=== PATIENT | female | born 1995 | race Caucasian/White ===

== ENCOUNTER 2016-07-09 10:22 | Emergency (ER) | payer BC, OTHER ==
[2016-07-09 11:16] VITALS: BP 113/68
--- NOTE | 2016-07-09 12:12 | UC ---
Throat Pain/Nasal [place] HPI - HPI Summary HPI Summary: 21 female presents with complaints of sore throat that began yesterday 07/08/16. Patient states the pain began as a burning every time she swallowed however has seemed to localize to her left tonsil which no feels swollen and causes painful swallowing. Patient has been taking Tylenol which gives her some relief. Last dose being around 9am this morning. She admits to a low grade fever 99F however has been strictly taking tylenol. Denies difficulty swallowing, difficulty breathing, cough, nasal congestion, and ear pain. Admits to some nasal congestion, swollen glands and headache. Denies PMHx. Has had strep in the past. Does not know of any sick contacts. - History of Current Complaint Chief Complaint: UCGeneralIllness Stated Complaint: SORE THROAT,SWOLLEN GLANDS,FEVER Hx Obtained From: Patient Hx Last Menstrual Period: 06/10/16 ?: No Onset/Duration: Sudden Onset, Still Present, Worse Since Severity: Moderate Pain Intensity: 5 Pain Scale Used: 0-10 Numeric Cough: None Associated Signs & Symptoms: Positive: Dysphagia, Nasal Discharge - Epiglottits Risk Factors Epiglottis Risk Factors: Negative - Allergies/Home Medications Allergies/Adverse Reactions: Allergies Allergy/AdvReac Type Severity Reaction Status Date / Time No Known Allergies Allergy Verified 07/09/16 11:16 PMH/Surg Hx/FS Hx/Imm Hx Cardiovascular History Of: Denies: Cardiac Disorders - Surgical History Surgical History: None - Family History Known Family History: Positive: Other - no history of kidney problems - Social History Alcohol Use: Weekly Substance Use Type: None Smoking Status (MU): Never Smoked Tobacco Review of Systems Constitutional: Fever, Chills Skin: Negative Eyes: Negative ENT: Sore Throat, Nasal Discharge Respiratory: Negative Cardiovascular: Negative Gastrointestinal: Negative Motor: Negative Neurovascular: Negative Musculoskeletal: Negative Neurological: Headache Psychological: Negative All Other Systems Reviewed And Are Negative: Yes Physical Exam Triage Information Reviewed: Yes Appearance: Well-Appearing, No Pain Distress, Well-Nourished Vital Signs: Initial Vital Signs Temp 99.1 F 07/09/16 11:09 Pulse 94 07/09/16 11:09 Resp 16 07/09/16 11:09 BP 113/68 07/09/16 11:09 Pulse Ox 98 07/09/16 11:09 Vital Signs Reviewed: Yes Eyes: Positive: Conjunctiva Clear ENT: Positive: Hearing grossly normal, Pharyngeal erythema, Nasal congestion, TMs normal, Tonsillar swelling - airway patent, Tonsillar exudate, Other: - uvula midline, no sign of peritonsillar abscess or epiglottitis signs.. Negative: Trismus, Muffled/hoarse voice Dental: Positive: Cervical Lymphadenopathy. Negative: Percussion Tenderness @ Neck: Positive: Supple, Nontender Respiratory: Positive: Chest non-tender, Lungs clear, Normal breath sounds, No respiratory distress, No accessory muscle use Cardiovascular: Positive: RRR, No Murmur, Pulses Normal, Brisk Capillary Refill Abdominal Exam: Normal Musculoskeletal Exam: Normal Neurological Exam: Normal Psychological Exam: Normal Skin Exam: Normal Throat Pain/Nasal Course/Dx - Course Course Of Treatment: patient did not appear to have a peritonsillar abscess. strep culture was attempted however due to scant blood on swab was unable to run. due to PE findings and according to [facility] Criteria patient will be treated for strep throat. Tonsillitis was not significant enough for oral steroids at this time. continue tylenol, probiotics, salt water swishes, OTC chloraseptic spray and take antibiotics. aware of worsening signs and symptoms to watch out for. not due for next dose of tylenol while in office. - Differential Dx/Diagnosis Differential Diagnosis/HQI/PQRI: Influenza, Laryngitis, Mononucleosis, Otitis Media, Pharyngitis, Sinusitis, Tonsillitis, URI Provider Diagnoses: strep pharyngitis, tonsillitis Discharge - Discharge Plan Condition: Stable Disposition: HOME Patient Education Materials: Strep Throat (ED), Tonsillitis (ED) Additional Instructions: Take prescribed antibiotic until entire dose is finished, even if symptoms improve. Recommend use of probiotic in between dose to replenish normal devan. Continue use of Tylenol/Ibuprofen for pain and fever. Swish with salt water multiple times daily. Chloraseptic spray or lozenges OTC to help soothe sore throat. If your throat is not improving or worsening, worsening sore throat, increasing fevers, trouble opening your mouth please seek medical attention. If you develop symptoms of increased tonsillar swelling with difficulty breathing please seek medical attention immediately, as this is an emergency.
== END 2016-07-09 12:18 | disposition home or self-care (01) ==
LOC: UCCORT 10:22
DX: J02.0 Streptococcal pharyngitis (principal)
CPT/HCPCS: 99212; G0463

== ENCOUNTER 2017-05-28 10:43 | Emergency (ER) | payer BC, OTHER ==
[2017-05-28 13:07] VITALS: BP 131/75
--- NOTE | 2017-05-28 13:10 | UC ---
Throat Pain/Nasal [place] HPI - HPI Summary HPI Summary: 22 y/o female presents to the urgent care c/o sore throat for the past 3 days. Pt reports pain w/ swallowing is 6/10. She has been taking Advil to alleviate symptoms. Last dose taking at 0400 today. Pt is UTD w/ all vaccines for her age. Pt denies fever, HERNANDEZ, body aches, chest pain, abdominal pain, N/V/D - History of Current Complaint Chief Complaint: UCGeneralIllness Stated Complaint: SORE THROAT Time Seen by Provider: 05/28/17 13:09 Hx Obtained From: Patient Hx Last Menstrual Period: last week ?: No Onset/Duration: Gradual Onset, Lasting Days - 3 days, Still Present, Worse Since - today Severity: Moderate Pain Intensity: 6 Pain Scale Used: 0-10 Numeric Cough: None Associated Signs & Symptoms: Positive: Dysphagia - Epiglottits Risk Factors Epiglottis Risk Factors: Negative - Allergies/Home Medications Allergies/Adverse Reactions: Allergies Allergy/AdvReac Type Severity Reaction Status Date / Time No Known Allergies Allergy Verified 05/28/17 13:02 Home Medications: Home Medications Minocycline HCl [Solodyn] 1 tab DAILY 05/28/17 [History Confirmed 05/28/17] PMH/Surg Hx/FS Hx/Imm Hx Previously Healthy: Yes - Pt denies PMHX - Surgical History Surgical History: None - Family History Known Family History: Positive: Diabetes - Social History Occupation: Student Lives: Dormitory/Roommates Alcohol Use: Weekly Substance Use Type: None Smoking Status (MU): Never Smoked Tobacco - Immunization History Vaccination Up to Date: Yes Review of Systems Constitutional: Negative Skin: Negative Eyes: Negative ENT: Sore Throat Respiratory: Negative Cardiovascular: Negative Gastrointestinal: Negative Genitourinary: Negative Motor: Negative Neurovascular: Negative Musculoskeletal: Negative Neurological: Negative Psychological: Negative Is Patient Immunocompromised?: No All Other Systems Reviewed And Are Negative: Yes Physical Exam Triage Information Reviewed: Yes Vital Signs: Initial Vital Signs Temp 98 F 05/28/17 13:04 Pulse 82 05/28/17 13:04 Resp 16 05/28/17 13:04 BP 131/75 05/28/17 13:04 Pulse Ox 100 05/28/17 13:04 - Additional Comments VITAL SIGNS: Reviewed. GENERAL: Patient is a well developed and nourished female who is sitting comfortable in the examining table. Patient is not in any acute respiratory distress. HEAD AND FACE: No signs of trauma. No ecchymosis, hematomas or skull depressions. No sinus tenderness. EYES: PERRLA, EOMI x 2, No injected conjunctiva, no nystagmus. No photophobia. EARS: Hearing grossly intact. Ear canals and tympanic membranes are within normal limits. MOUTH: Positive pharynx with erythema, no exudates, mild palatal petechiae. No B /L tonsillar enlargement with no exudate. Uvula in midline. NECK: Supple, trachea is midline, Positive anterior cervical lymphadenopathy, no JVD, no carotid bruit, no c-spine tenderness, neck with full ROM. No meningeal signs, no Kernig's or brudzinskis signs. CHEST: Symmetric, no tenderness at palpation LUNGS: Clear to auscultation bilaterally. No wheezing or crackles. CVS: Regular rate and rhythm, S1 and S2 present, no murmurs or gallops appreciated. ABDOMEN: Soft, non-tender. No signs of distention. No rebound no guarding, and no masses palpated. Bowel sounds are normal. EXTREMITIES: FROM in all major joints, no edema, no cyanosis or clubbing. NEURO: Alert and oriented x 3. No acute neurological deficits. Speech is normal and follows commands. SKIN: Dry and warm Throat Pain/Nasal Course/Dx - Course Course Of Treatment: 22 y/o female presents to the urgent care c/o sore throat for the past 3 days. Pt reports pain w/ swallowing is 6/10. She has been taking Advil to alleviate symptoms. Last dose taking at 0400 today. Pt is UTD w/ all vaccines for her age. Pt denies fever, HERNANDEZ, body aches, chest pain, abdominal pain, N/V/D. Hx obtained. Pt w/ pharyngitis on examination. Rapid strep ordered , result: negative. Viral pharyngitis.Pt Rx ibuprofen PO to alleviates symptoms of pain and swelling. Advised on hand washing to avoid spreading. Pt advised to rest, eat well and avoid strenuous exercise. If symptoms do not improve or worsen advised to return to the urgent care or f/u with her PCP for further evaluation and treatment. Pt understood and agreed - Differential Dx/Diagnosis Differential Diagnosis/HQI/PQRI: Influenza, Laryngitis, Pharyngitis, Sinusitis, URI Provider Diagnoses: 1- Viral pharyngitis Discharge - Discharge Plan Condition: Stable Disposition: HOME Prescriptions: Ibuprofen TAB* [Motrin TAB* 800 MG] 800 mg PO Q6H PRN #20 tab PRN Reason: Sore Throat Patient Education Materials: Pharyngitis (ED) Referrals: [facility] [Outside] - If Needed Additional Instructions: 1-Please take ibuprofen PO q6-8hrs prn as instructed after meals to alleviate pain and swelling. Increase fluid intake, eat well, rest and avoid strenuous exercise 2-If symptoms do not improve or worsen please return to the urgent care or f/u with your PCP for further evaluation and treatment.
== END 2017-05-28 13:40 | disposition home or self-care (01) ==
LOC: UCCORT 10:43
DX: J02.8 Acute pharyngitis due to other specified organisms (principal); R13.10 Dysphagia, unspecified
CPT/HCPCS: 87651; 99212; G0463